=== PATIENT | male | born 1960 | race Caucasian/White ===

== ENCOUNTER → 2020-10-21 07:05 | Outpatient (CLI) | payer BC, OTHER, SELFPAY ==
--- NOTE | ~2020-10-21 | XR_ITS ---
EXAMINATION: XR finger 3rd RT min 2V EXAM DATE: 10/21/2020 07:50 INDICATION: M79.646 - Pain in unspecified finger(s). Pt had an infection below his nail of his 3rd f sonia in October 2019, treated with antibiotics and infection went away but ever since the DIP has been swollen and tender, pt jammed this finger as a child, no recent trauma or surgery- TECHNIQUE: Right 3rd finger frontal, lateral and oblique projections obtained and reviewed. There ar e no prior studies for comparison. FINDINGS: There is mild to moderate loss of the right 3rd distal interphalangeal joint space, osteoa rthritis. There are several small articular surface erosions/cystic changes at the distal interphalan geal joint probably subchondral cysts. These appear well defined, corticated and there is no deminera lization to suggest acute osteomyelitis. This arthritis could be secondary to prior episode of osteom yelitis, or could be secondary to posttraumatic etiology given history provided. There is some swelli ng over this joint. 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 Reviewed, dictated and finalized at location A.
== END ==
PROVIDERS: PCP Family Medicine; Visit Provider Family Medicine
DX: M19.041 Primary osteoarthritis, right hand (principal)
CPT/HCPCS: 73140